=== PATIENT | female | born 1970 | race Caucasian/White ===

== ENCOUNTER 2021-03-01 15:54 | Emergency (ER) | payer OTHER, SELFPAY ==
--- NOTE | 2021-03-01 15:57 | ED.EAR ---
HPI - Ear Problem General Chief complaint: Ear Stated complaint: ear pain Time Seen by Provider: 03/01/21 16:00 Source: patient and RN notes reviewed Mode of arrival: ambulatory Limitations: no limitations History of Present Illness HPI Narrative: 51-year-old female with history of COPD presents with concern for congestion, bilateral right ear pain, chest congestion, wheezing. Reports she has been using her as needed nebulizer approximately twice daily, last used it last night before bed. She denies any other medical intervention. She denies fever, chills, sweats, body aches, shortness of breath, loss of sense of taste or smell. Denies any known sick contacts. MD Complaint: ear pain Related Data Home Medications Medication Instructions Recorded Confirmed albuterol sulfate 1 mg INHALATION PRN PRN 03/01/21 03/01/21 atorvastatin 10 mg PO DAILY 03/01/21 03/01/21 metoprolol succinate 25 mg PO DAILY 03/01/21 03/01/21 omeprazole 40 mg PO DAILY 03/01/21 03/01/21 rivaroxaban [Xarelto] 10 mg PO DAILY 03/01/21 03/01/21 tiotropium bromide [Spiriva with 18 mcg INHALATION DAILY 03/01/21 03/01/21 HandiHaler] Allergies Allergy/AdvReac Type Severity Reaction Status Date / Time Penicillins Allergy Mild RASH Verified 03/01/21 15:59 Review of Systems Review of Systems: Narrative: CONSTITUTIONAL: Denies malaise, chills, sweats, or fever. EYES: Denies visual changes, redness, or discharge. ENT: Reports rhinorrhea, congestion, otalgia. Denies sinus pain and sore throat. CARDIOVASCULAR: Denies chest pain, palpitations, or edema. RESPIRATORY: Reports cough, wheezing. Denies dyspnea. GASTROINTESTINAL: Denies abdominal pain, nausea, vomiting, diarrhea SKIN: Denies rash or itching. MUSCULOSKELETAL: Denies myalgia. NEUROLOGIC: Denies headache. All systems reviewed & are unremarkable except as noted in HPI and below PMFSH Comments At time of signature, agree with nursing past medical, surgical, social and family history. There is no relevant family history pertinent to the presenting complaint Exam Narrative: Exam Narrative: GENERAL: Well-appearing, well-nourished, and in no acute distress. HEAD: Normocephalic EYES: PERRLA, conjunctivae clear ENT: Nares clear, turbinateserythematous, clear discharge. Mucous membranes moist. TM pearly perez with sharp light reflex bilaterally; no tragal tenderness. Oropharynx not erythematous without lesions. Tonsils not enlarged and without exudate, no drooling, no hoarseness, no trismus, uvula midline. NECK: Supple. No lymphadenopathy CHEST: Clear to auscultation, breath sounds equal. No wheezing, rhonchi, rales, or stridor. No respiratory distress, speaks in full sentences. HEART: Regular rate and rhythm. No murmur heard. SKIN: Warm, dry, no rash. NEURO: Alert and oriented x3. PSYCH: Normal mood and affect Course Course Emergency Course: Patient is aware of diagnosis, understands and agrees to treatment plan. Anticipatory guidance given. Patient agrees to follow-up as directed and is aware of reasons to seek care at the emergency department. Portions of this record may have been created with voice recognition software Vital Signs Vital signs: Vital Signs Temperature 99.1 F 03/01/21 16:03 Pulse Rate 87 03/01/21 16:03 Respiratory Rate 20 03/01/21 16:03 Blood Pressure 126/59 L 03/01/21 16:03 Pulse Oximetry 96 03/01/21 16:03 Temperature 99.1 F 03/01/21 16:03 Pulse Rate 87 03/01/21 16:03 Respiratory Rate 20 03/01/21 16:03 Blood Pressure 126/59 L 03/01/21 16:03 Pulse Oximetry 96 03/01/21 16:03 Reviewed. Medical Decision Making MDM Narrative Medical decision making narrative: Differential diagnosis considered: Real virus, strep pharyngitis, allergic rhinitis, upper respiratory tract infection, sinusitis, rhinosinusitis, nasopharyngitis. viral pharyngitis, otitis media, otitis externa, pneumonia, bronchitis, viral cough syndrome, viral syndrome, and influenza. Exam fi
[2021-03-01 16:03] VITALS: BP 126/59; PULSE 87; RESP 20; TEMP 37.3; O2SAT 96
== END 2021-03-01 16:17 | disposition home or self-care (01) ==
PROVIDERS: Emergency Provider Nurse Practitioner; PCP Family Medicine
DX: J44.1 Chronic obstructive pulmonary disease with (acute) exacerbation (principal); I10 Essential (primary) hypertension; E78.00 Pure hypercholesterolemia, unspecified; Z86.711 Personal history of pulmonary embolism; Z86.718 Personal history of other venous thrombosis and embolism; M19.90 Unspecified osteoarthritis, unspecified site
CPT/HCPCS: 99213; G0463

== ENCOUNTER 2021-05-26 19:19 | Emergency (ER) | payer OTHER, SELFPAY ==
--- NOTE | ~2021-05-26 | XR_ITS ---
EXAMINATION: XR chest 2V DATE: 05/26/2021 19:51 INDICATION: Shortness of breath and cough. TECHNIQUE: Frontal and lateral views of the chest were obtained on 3 radiographs. COMPARISON: None. FINDINGS: The chest demonstrates clear lungs without pneumonia, pleural effusion, or pneumothorax. Th e heart size is normal. IMPRESSION: 1. No acute cardiopulmonary disease. Reviewed, dictated and finalized at location A.
[2021-05-26 19:33] VITALS: BP 125/64; PULSE 103; RESP 24; TEMP 37.7; O2SAT 98
[2021-05-26] MEDS: IPRATROPIUM BR 0.02% INH SOLN 0.5 MG/2.5 ML VIAL INHALATION (19:54)
[2021-05-26] MEDS: ALBUTEROL SULFATE NEB 2.5 MG/3 ML INH INHALATION (19:54)
--- NOTE | 2021-05-26 20:06 | ED.URI ---
HPI - URI/Sore Throat General Chief Complaint: Upper Respiratory Infection Stated Complaint: cp Time Seen by Provider: 05/26/21 20:06 Source: patient and RN notes reviewed Mode of arrival: ambulatory Limitations: no limitations History of Present Illness HPI Narrative: Patient presents today with a 12-day history of scratchiness in the throat, chest congestion, and productive cough with shortness of breath. States her mother was sick prior to onset of her symptoms. Denies fever. Patient does have history of COPD. She has been taking DayQuil and Robitussin with some relief. Patient does have a nebulizer at home, but states this makes the burning in her chest worse so she has not been using it. MD elicited complaint: cough Related Data Home Medications Medication Instructions Recorded Confirmed albuterol sulfate 1 mg INHALATION PRN PRN 03/01/21 03/01/21 metoprolol succinate 25 mg PO DAILY 03/01/21 03/01/21 omeprazole 40 mg PO DAILY 03/01/21 03/01/21 rivaroxaban [Xarelto] 10 mg PO DAILY 03/01/21 03/01/21 furosemide 1 mg PO DAILY 05/26/21 05/26/21 Allergies Allergy/AdvReac Type Severity Reaction Status Date / Time Penicillins Allergy Mild RASH Verified 05/26/21 19:40 Review of Systems Review of Systems: CONSTITUTIONAL: Denies body aches, fever, chills, or sweats. EYES: Denies visual changes, redness, or discharge. ENT: Denies rhinorrhea, sore throat, or otalgia.+ Congestion, scratchy throat CARDIOVASCULAR: Denies chest pain, palpitations, or edema. RESPIRATORY: + Chest congestion, cough, shortness of breath GASTROINTESTINAL: Denies abdominal pain, nausea, vomiting, or diarrhea. GENITOURINARY: Denies dysuria or hematuria. SKIN: Denies rash, itching, or wounds. MUSCULOSKELETAL: Denies back pain, joint pain, or myalgia. NEUROLOGIC: Denies headache, numbness, tingling, or weakness. PSYCH: Denies depression or anxiety. [facility] Past Medical History Medical History (Updated 05/26/21 @ 20:29 by Paloma Scanlon, SPANISHER, BC) COPD (chronic obstructive pulmonary disease) Social History Social History Gender identity (if verbalized by the patient): Female Comments At time of signature, I have reviewed and agree with nursing past medical, surgical, social and family history unless otherwise noted. Please see nursing chart for further information. There is no relevant family history pertinent to the presenting complaint Exam Narrative: GENERAL: Chronically ill-appearing, well-nourished, and in no acute distress. HEAD: Normocephalic, atraumatic. EYES: EOMI. No redness or drainage. Conjunctivae normal. ENT: Mucous membranes pink and moist. Nares clear. No rhinorrhea. TMs normal bilaterally. Throat normal. Uvula midline. NECK: Normal AROM. Supple. No lymphadenopathy. CHEST: Visibly short of breath. Diminished in the bilateral bases. HEART: Regular rate and rhythm. No murmur appreciated. Normal peripheral pulses. EXTREMITIES: Normal range of motion. No edema. SKIN: Warm, dry, no rash. Capillary refill normal. Normal skin turgor. NEURO: No focal deficits. Alert and oriented x3. Gait steady. PSYCH: Normal affect. No signs of depression or anxiety. Course Vital Signs Vital signs: Vital Signs Temperature 99.9 F H 05/26/21 19:33 Pulse Rate 103 H 05/26/21 19:33 Respiratory Rate 24 H 05/26/21 19:33 Blood Pressure 125/64 05/26/21 19:33 Pulse Oximetry 98 05/26/21 19:33 Temperature 99.9 F H 05/26/21 19:33 Pulse Rate 103 H 05/26/21 19:33 Respiratory Rate 24 H 05/26/21 19:33 Blood Pressure 125/64 05/26/21 19:33 Pulse Oximetry 98 05/26/21 19:33 Reviewed. Pt has been instructed to follow up with her PCP regarding her elevated blood pressure today. MDM - URI/Sore Throat Differential Diagnosis Differential diagnosis: Likely upper respiratory infection, viral infection, bronchitis and other (COPD exacerbation, pneumonia) Imaging Data Radiologist's impression: ITS Impressions Chest X
== END 2021-05-26 20:33 | disposition home or self-care (01) ==
PROVIDERS: Emergency Provider Nurse Practitioner; PCP Family Medicine
DX: J44.1 Chronic obstructive pulmonary disease with (acute) exacerbation (principal); J01.90 Acute sinusitis, unspecified
CPT/HCPCS: 71046; 94640; 99213; G0463